=== PATIENT | male | born 1955 ===

== ENCOUNTER 2017-05-12 22:44 | Emergency (ER) | payer OTHER ==
[2017-05-12 22:44] VITALS: BMI 32.5
--- NOTE | 2017-05-12 23:37 | C.PDOC ---
History Of Present Illness 61 year old male with PMHx of schizophrenia living in a fpc presents today via EMS for dental pain. Patient was seen by his dentist today where he had 2 extractions. EMS states that they were called for dental pain but when questioned here patient states he has leg pain and not dental pain. Patient does have a fever of 102.9 which he was unaware of. On further questioning he also admits to having a cough associated with body aches. Patient is a poor historian. Time Seen by Provider: 05/12/17 23:31 Chief Complaint (Nursing): Dental Pain History Per: Patient History/Exam Limitations: no limitations Onset/Duration Of Symptoms: Hrs Current Symptoms Are (Timing): Still Present Quality: Positive for: "Pain" Recent travel outside of the [place]: No Additional History Per: Patient Past Medical History Reviewed: Historical Data, Nursing Documentation, Vital Signs Vital Signs: Last Vital Signs Temp 102.9 F H 05/12/17 23:28 Pulse 110 H 05/12/17 23:01 Resp 20 05/12/17 23:01 BP 104/59 L 05/12/17 23:01 Pulse Ox 96 05/13/17 00:20 - Medical History PMH: Anxiety, Gastritis, HTN, Parkinson's Disease, Schizophrenia Denies: Chronic Kidney Disease Surgical History: Appendectomy - [facility] Procedures ENDOSC POLYPECTOMY OF LG INTEST (03/02/13) Family History: States: Unknown Family Hx - Social History Hx Alcohol Use: No Hx Substance Use: No - Immunization History Hx Tetanus Toxoid Vaccination: Yes Hx Influenza Vaccination: Yes Hx Pneumococcal Vaccination: Yes Review Of Systems Except As Marked, All Systems Reviewed And Found Negative. Constitutional: Positive for: Fever. Negative for: Chills ENT: Positive for: Mouth Pain Cardiovascular: Negative for: Chest Pain, Palpitations Respiratory: Positive for: Cough. Negative for: Shortness of Breath Gastrointestinal: Negative for: Nausea, Vomiting, Abdominal Pain Musculoskeletal: Positive for: Leg Pain Skin: Negative for: Rash Neurological: Negative for: Weakness, Numbness Physical Exam - Physical Exam Appears: Non-toxic, No Acute Distress Skin: Normal Color, Warm, Dry Head: Atraumatic, Normacephalic Eye(s): bilateral: Other (conjuctival injection) Nose: No Discharge, No Deformity Oral Mucosa: Moist Teeth: Other (fresh missing teeth with no active bleeding) Throat: Normal, No Erythema, No Exudate Neck: Normal ROM, Supple Chest: Symmetrical Cardiovascular: Rhythm Regular, No Murmur Respiratory: Normal Breath Sounds, No Rales, No Rhonchi, No Wheezing Gastrointestinal/Abdominal: Soft, No Tenderness, No Guarding, No Rebound Extremity: Normal ROM, No Pedal Edema, No Calf Tenderness, No Deformity, No Swelling Neurological/Psych: Oriented x3, Normal Speech, Normal Cognition ED Course And Treatment O2 Sat by Pulse Oximetry: 96 (On RA) Pulse Ox Interpretation: Normal Medical Decision Making Medical Decision Making: Plan: * Blood work * CXR * Tylenol 650 mg PO * Influenza A B test * UA Disposition - Disposition Disposition Time: 00:46 Condition: STABLE Forms: [facility] ([place]) - Clinical Impression Clinical Impression: Fever - Scribe Statement The provider has reviewed the documentation as recorded by the Scribe Dalton Blum All medical record entries made by the Scribe were at my direction and personally dictated by me. I have reviewed the chart and agree that the record accurately reflects my personal performance of the history, physical exam, medical decision making, and the department course for this patient. I have also personally directed, reviewed, and agree with the discharge instructions and disposition. Physician Patient Turnover Patient Signed Over To: Nida Ash Handoff Comments: pending labs and xray
[2017-05-13 01:02] LABS: BASO % 0.4 % (0.0-2.0); EOS % 0.2 % (0.0-4.0); HEMOGLOBIN 12.7 g/dL (12.0-18.0); LYMPH # 1.5 K/uL (1.0-4.3); LYMPH % 22.7 % (20.0-40.0); MEAN CELL VOLUME 82.9 fL (80.0-94.0); MEAN CORPUSCULAR HEMOGLOBIN 27.6 pg (27.0-31.0); MEAN CORPUSCULAR HGB CONC 33.3 g/dL (33.0-37.0); MEAN PLATELET VOLUME 8.7 fL (7.2-11.7); MONO # 0.7 K/uL (0.0-0.8); NEUT # 4.5 K/uL (1.8-7.0); NEUT % 66.7 % (50.0-75.0); NRBC % 0.1 % (0.0-2.0); RBC 4.6 Mil/uL (4.40-5.90); WHITE BLOOD COUNT 6.8 K/uL (4.8-10.8)
[2017-05-13 01:23] LABS: ALB/GLOB RATIO 1.3 (1.0-2.1); ALBUMIN 4.3 g/dL (3.5-5.0); ALT/SGPT 57 U/L (21-72); AST/SGOT 68 U/L (17-59); BLOOD UREA NITROGEN 16 mg/dL (9-20); CALCIUM 8.5 mg/dl (8.6-10.4); GFR AFRICAN-AMERICAN > 60; GFR NON-AFRICAN AMERICAN 56
[2017-05-13] MEDS ORDERED: Sodium Chloride 0.9% 1,000 ML ONE (01:37)
[2017-05-13] MEDS: Sodium Chloride 0.9% 1,000 ML IV ONE (01:42)
--- NOTE | 2017-05-13 07:52 | RAD ---
HISTORY: cough and fever COMPARISON: Chest x-ray 05/13/2017 TECHNIQUE: Chest PA and lateral FINDINGS: LUNGS: No focal consolidation is seen. PLEURA: No pleural effusion is identified. CARDIOVASCULAR: Heart size is within normal limits. OSSEOUS STRUCTURES: No acute fracture identified. VISUALIZED UPPER ABDOMEN: Unremarkable. OTHER FINDINGS: None. IMPRESSION: No acute cardiopulmonary process seen.
[2017-05-13 08:21] LABS: SQUAMOUS EPITHIAL < 1 /hpf (0-5); URINE BILIRUBIN NEGATIVE (NEGATIVE); URINE BLOOD NEGATIVE (NEGATIVE); URINE CLARITY Clear (Clear); URINE COLOR Yellow (YELLOW); URINE GLUCOSE (UA) NORMAL (Normal); URINE LEUKOCYTE ESTERASE NEG Leu/uL (Negative); URINE NITRATE NEGATIVE (NEGATIVE); URINE PROTEIN 1+ mg/dL (NEGATIVE); URINE UROBILINOGEN NORMAL mg/dL (0.2-1.0)
[2017-05-13 08:24] LABS: BASO # 0.1 K/uL (0.0-0.2); BASO % 1.1 % (0.0-2.0); EOS % 0.4 % (0.0-4.0); HEMOGLOBIN 12.3 g/dL (12.0-18.0); LYMPH # 1.9 K/uL (1.0-4.3); LYMPH % 30.5 % (20.0-40.0); MEAN CELL VOLUME 83.3 fL (80.0-94.0); MEAN CORPUSCULAR HGB CONC 33.6 g/dL (33.0-37.0); MEAN PLATELET VOLUME 8.6 fL (7.2-11.7); MONO # 0.6 K/uL (0.0-0.8); MONO % 9.5 % (0.0-10.0); NEUT # 3.7 K/uL (1.8-7.0); NEUT % 58.5 % (50.0-75.0); NRBC % 0.1 % (0.0-2.0); RBC 4.39 Mil/uL (4.40-5.90); RED CELL DISTRIBUTION WIDTH 16.1 % (11.5-14.5); WHITE BLOOD COUNT 6.3 K/uL (4.8-10.8)
[2017-05-13 08:33] LABS: VENOUS BLOOD GAS PCO2 42 mmHg (40-60); VENOUS BLOOD GAS PO2 35 mm/Hg (30-55)
--- NOTE | 2017-05-13 08:42 | CT ---
PROCEDURE: CT Chest without contrast HISTORY: SOB COMPARISON: . Two-view chest TECHNIQUE: Contiguous axial images were obtained through the chest without intravenous contrast enhancement. Sagittal and coronal reconstructions were performed. Radiation dose (DLP): 370.46 she mGy-cm. This CT exam was performed using one or more of the following dose reduction techniques: Automated exposure control, adjustment of the mA and/or kV according to patient size, and/or use of iterative reconstruction technique. FINDINGS: LUNGS: Dependent atelectasis at the lung bases approximately symmetrical, mild in degree/ severity. No suspicious pulmonary nodules, masses or infiltrates otherwise identified. She Clear lungs. Visualized airway clear. MEDIASTINUM: Unremarkable thoracic aorta. No aneurysm. Normal sized heart. Main pulmonary artery unremarkable. No vascular congestion. No lymphadenopathy. Thickening of the esophagus may reflect mild diffuse esophagitis. No focal abnormalities identified. PLEURA: No pleural fluid. No pneumothorax. BONES: No fracture. No destructive lesion. UPPER ABDOMEN: Grossly unremarkable. OTHER FINDINGS: Cholelithiasis without CT evidence of acute cholecystitis. IMPRESSION: Dependent atelectasis, mild and symmetrical at the lung bases. Findings suggestive of mild esophagitis. Cholelithiasis without CT evidence of acute cholecystitis.
--- NOTE | 2017-05-13 09:27 | RAD ---
PROCEDURE: CHEST RADIOGRAPH, 1 VIEW HISTORY: SOB COMPARISON: 02/09/2017 FINDINGS: LUNGS: Shallow lung volumes - consolidation PLEURA: No pneumothorax. Trace left pleural effusion possible -shallow lung volume impede optimal evaluation here CARDIOVASCULAR: Minimal cardiomegaly. Central pulmonary vasculature -top normal appearing OSSEOUS STRUCTURES: Bilateral shoulder or arthrosis VISUALIZED UPPER ABDOMEN: Normal. OTHER FINDINGS: None. IMPRESSION: Minimal cardiomegaly. Central pulmonary vasculature -top normal appearing. Possible minimal left pleural effusion No consolidation
--- NOTE | 2017-05-13 10:22 | US ---
HISTORY: fever pain COMPARISON: None available. TECHNIQUE: Sonographic evaluation of the right upper quadrant of the abdomen. FINDINGS: LIVER: Measures 17.7 cm in length. Echogenic liver may be seen in setting of hepatic parenchymal disease or fatty infiltration. No focal hepatic mass identified. The main portal vein is not well visualized. No intrahepatic bile duct dilatation. GALLBLADDER: Gallstones. No gallbladder wall thickening or pericholecystic edema. Negative sonographic Correa's sign as assessed by the manager ed. COMMON BILE DUCT: Measures 5 mm. PANCREAS: Not well-visualized. RIGHT KIDNEY: Measures 10.8 cm. No obstructing is identified. AORTA: Not well-visualized. IVC: Not well-visualized. OTHER FINDINGS: None . IMPRESSION: Markedly limited study. Echogenic liver may be seen in setting of hepatic parenchymal disease or fatty infiltration. Cholelithiasis.
[2017-05-13 13:22] VITALS: BP 159/79; PULSE 105; RESP 18; TEMP 97.7; O2SAT 96
== END 2017-05-13 13:12 | disposition home or self-care (01) ==
LOC: C.ER 22:44
DX: R50.9 Fever, unspecified (principal); I10 Essential (primary) hypertension; G20 Parkinson's disease
CPT/HCPCS: 71045; 71046; 71250; 76705; 80053; 81001; 82803; 85025; 87040; 87086; 87804; 96360; 99285; J7040

== ENCOUNTER 2018-08-22 07:04 | Observation (INO) | payer OTHER ==
[2018-08-22 07:05] VITALS: BMI 32.5
--- NOTE | 2018-08-22 08:33 | CT ---
Date of service: 08/22/2018 PROCEDURE: CT HEAD WITHOUT CONTRAST. HISTORY: drowsiness, lethargy for 10 hours COMPARISON: None available. TECHNIQUE: Axial computed tomography images were obtained through the head/brain without intravenous contrast. Radiation dose: Total exam DLP = 947.08 mGy-cm. This CT exam was performed using one or more of the following dose reduction techniques: Automated exposure control, adjustment of the mA and/or kV according to patient size, and/or use of iterative reconstruction technique. FINDINGS: HEMORRHAGE: No intracranial hemorrhage. BRAIN: No mass effect or edema. Scattered focal lucencies in the subcortical and periventricular white matter suggestive for chronic microvascular ischemic change. Bilateral basal ganglia calcifications. VENTRICLES: Unremarkable. No hydrocephalus. CALVARIUM: Unremarkable. PARANASAL SINUSES: Unremarkable as visualized. No significant inflammatory changes. MASTOID AIR CELLS: Unremarkable as visualized. No inflammatory changes. OTHER FINDINGS: None. IMPRESSION: No acute intracranial abnormality. Chronic microvascular ischemic changes. Bilateral basal ganglia calcifications. If symptoms persists, consider correlation with MRI.
[2018-08-22 08:41] LABS: VENOUS BLOOD GAS BASE EXCESS -2.2 mmol/L (0.0-2.0); VENOUS BLOOD GAS PCO2 44 mmHg (40-60); VENOUS BLOOD GAS PO2 48 mm/Hg (30-55); VENOUS BLOOD PH 7.34 (7.32-7.43)
[2018-08-22] MEDS ORDERED: Sodium Chloride 0.9% 1,000 ML ONE (08:41)
[2018-08-22 08:43] LABS: BASO % 0.5 % (0.0-2.0); EOS # 0.2 K/uL (0.0-0.7); EOS % 1.9 % (0.0-4.0); HEMOGLOBIN 11.2 g/dL (12.0-18.0); LYMPH # 1.9 K/uL (1.0-4.3); LYMPH % 23.2 % (20.0-40.0); MEAN CELL VOLUME 81.5 fL (80.0-94.0); MEAN CORPUSCULAR HGB CONC 31.9 g/dL (33.0-37.0); MEAN PLATELET VOLUME 8.3 fL (7.2-11.7); MONO # 0.7 K/uL (0.0-0.8); NEUT # 5.5 K/uL (1.8-7.0); NEUT % 66.4 % (50.0-75.0); NRBC % 0.1 % (0.0-2.0); RBC 4.3 Mil/uL (4.40-5.90); RED CELL DISTRIBUTION WIDTH 17.1 % (11.5-14.5); WHITE BLOOD COUNT 8.3 K/uL (4.8-10.8)
[2018-08-22 08:51] LABS: INR 1.1; PROTHROMBIN TIME 11.9 SECONDS (9.7-12.2)
--- NOTE | 2018-08-22 09:05 | RAD ---
Chest x-ray single frontal view HISTORY: Code stroke. COMPARISON: 05/13/2017 FINDINGS: Mild patchy increased markings at the lung bases. Heart size within normal limits. Degenerative changes in the spine. Impression: Mild patchy increased markings at the lung bases.
[2018-08-22 09:08] LABS: ALB/GLOB RATIO 1.5 (1.0-2.1); ALBUMIN 4.1 g/dL (3.5-5.0); ALT/SGPT 11 U/L (21-72); AST/SGOT 222 U/L (17-59); BLOOD UREA NITROGEN 34 mg/dL (9-20); CALCIUM 9.2 mg/dl (8.6-10.4); GFR NON-AFRICAN AMERICAN > 60; HDL CHOLESTEROL 47 mg/dL (30-70)
--- NOTE | 2018-08-22 09:16 | C.PDOC ---
History Of Present Illness 63 y/o male brought to ER from ambulance from [facility] for evaluation of lethargy. Per EMS, the staff at the center noted that patient appeared more lethargic and drowsy than usual since 10 pm last night. The staff continued to observe the patient overnight and in the bell hole digger. They noticed that patient was still lethargic so they decided to call the ambulance.On arrival to ER, patient is awake and alert.Patient is complaining of back pain. Denies having fever,chills, neck pain,CP,SOB, weakness/numbness and bowel/bladder incontinence. Time Seen by Provider: 08/22/18 07:28 Chief Complaint (Nursing): Weakness/Neurological Deficit History Per: Patient, EMS History/Exam Limitations: no limitations Onset/Duration Of Symptoms: Days Current Symptoms Are (Timing): Still Present Severity: Moderate Past Medical History Reviewed: Historical Data, Nursing Documentation, Vital Signs Vital Signs: Last Vital Signs Temp 98.5 F 08/22/18 07:09 Pulse 83 08/22/18 07:09 Resp 18 08/22/18 07:09 BP 131/71 08/22/18 07:09 Pulse Ox 98 08/22/18 07:09 - Medical History PMH: Anxiety, Back Problems (Lower back pain), Gastritis, HTN, Hyperlipidemia, Parkinson's Disease (Parkinson's Syndrome), Schizophrenia Denies: Chronic Kidney Disease Surgical History: Appendectomy - [facility] Procedures ENDOSC POLYPECTOMY OF LG INTEST (03/02/13) Family History: States: No Known Family Hx - Social History Hx Alcohol Use: No Hx Substance Use: No - Immunization History Hx Tetanus Toxoid Vaccination: Yes Hx Influenza Vaccination: Yes Hx Pneumococcal Vaccination: Yes Review Of Systems Except As Marked, All Systems Reviewed And Found Negative. Constitutional: Negative for: Fever, Chills Cardiovascular: Negative for: Chest Pain Respiratory: Negative for: Shortness of Breath Musculoskeletal: Positive for: Back Pain. Negative for: Neck Pain Neurological: Negative for: Weakness, Numbness Physical Exam - Physical Exam Appears: Non-toxic, No Acute Distress, Other (drowsy but arousable upon verbal stimuli, answering questions appropriately) Skin: Normal Color, Warm, Dry, No Rash Head: Atraumatic, Normacephalic Eye(s): bilateral: PERRL, EOMI Nose: Normal Oral Mucosa: Moist Tongue: Normal Appearing Lips: Normal Appearing Throat: No Erythema, No Exudate Neck: Normal ROM, Supple Chest: Symmetrical, No Tenderness Cardiovascular: Rhythm Regular, No Friction Rub, No Murmur Respiratory: Normal Breath Sounds, No Rales, No Rhonchi, No Wheezing Gastrointestinal/Abdominal: Normal Exam, Soft, No Tenderness, No Guarding, No Rebound Back: No CVA Tenderness, Vertebral Tenderness, Paraspinal Tenderness Extremity: Normal ROM, No Tenderness, No Swelling Pulses: Left Radial: Normal, Right Radial: Normal, Left Dorsalis Pedis: Normal, Right Dorsalis Pedis: Normal Neurological/Psych: Oriented x3, Normal Speech, Normal Motor, Normal Sensation Gait: Unable To Assess ED Course And Treatment - Laboratory Results Result Diagrams: 08/22/18 08:35 08/22/18 08:35 Lab Results: pO2 48 mm/Hg (30-55) 08/22/18 08:37 VBG pH 7.34 (7.32-7.43) 08/22/18 08:37 VBG pCO2 44 mmHg (40-60) 08/22/18 08:37 VBG HCO3 22.8 mmol/L 08/22/18 08:37 VBG Total CO2 25.1 mmol/L (22-28) 08/22/18 08:37 VBG O2 Sat (Calc) 85.4 % (40-65) H 08/22/18 08:37 VBG Base Excess -2.2 mmol/L (0.0-2.0) L 08/22/18 08:37 VBG Potassium 3.4 mmol/L (3.6-5.2) L 08/22/18 08:37 Sodium 139.0 mmol/l (132-148) 08/22/18 08:37 Chloride 106.0 mmol/L (98-107) 08/22/18 08:37 Glucose 71 mg/dl (75-110) L 08/22/18 08:37 Lactate 1.2 mmol/L (0.7-2.1) 08/22/18 08:37 PT 11.9 SECONDS (9.7-12.2) 08/22/18 08:35 INR 1.1 08/22/18 08:35 APTT 30 SECONDS (21-34) 08/22/18 08:35 Troponin I < 0.0120 ng/mL (0.00-0.120) 08/22/18 08:35 Total Bilirubin 0.2 mg/dL (0.2-1.3) 08/22/18 08:35 AST 222 U/L (17-59) H D 08/22/18 08:35 ALT 11 U/L (21-72) L D 08/22/18 08:35 Alkaline Phosphatase 88 U/L (38-126) 08/22/18 08:35 Total Protein 6.9 g/dL (6.3-8.3) 08/22/18 08:35 Albumin 4.1 g/dL (3.5-5.0) 08/22/18 08:35 Globulin 2.8 gm/dL (2.2-3.9) 08/22/18 08:35 Albumin/Globulin Ratio 1.5 (1.0-2.1) 08/22/18 08:35 ECG: Interpreted By Me ECG Rhythm: Sinus Rhythm ECG Interpretation: Normal Interpretation Of ECG: normal axis, normal ST-T waves, normal R wave progression O2 Sat by Pulse Oximetry: 98 (RA) Pulse Ox Interpretation: Normal - Other Rad CXR X-Ray: Viewed By Me, Read By Radiologist Interpretation: Chest x-ray single frontal view. HISTORY: Code stroke. COMPARISON: 05/13/2017. FINDINGS: Mild patchy increased markings at the lung bases. Heart size within normal limits. Degenerative changes in the spine. Impression: Mild patchy increased markings at the lung bases. - CT Scan/US CT-Head Other Rad Studies (CT/US): Read By Radiologist, Radiology Report Reviewed CT/US Interpretation: Date of service: 08/22/2018. PROCEDURE: CT HEAD WITHOUT CONTRAST. HISTORY: drowsiness, lethargy for 10 hours. COMPARISON: None available. TECHNIQUE: Axial computed tomography images were obtained through the head/brain without intravenous contrast. Radiation dose: Total exam DLP = 947.08 mGy-cm. This CT exam was performed using one or more of the following dose reduction techniques: Automated exposure control, adjustment of the mA and/or kV according to patient size, and/or use of iterative reconstruction tech nique. FINDINGS: HEMORRHAGE: No intracranial hemorrhage. BRAIN: No mass effect or edema. Scattered focal lucencies in the subcortical and periventricular white matter suggestive for chronic microvascular ischemic change. Bilateral basal ganglia calcifications. VENTRICLES: Unremarkable. No hydrocephalus. CALVARIUM: Unremarkable. PARANASAL SINUSES: Unremarkable as visualized. No significant inflammatory changes. MASTOID AIR CELLS: Unremarkable as visualized. No inflammatory changes. OTHER FINDINGS: None. IMPRESSION: No acute intracranial abnormality. Chronic microvascular ischemic changes. Bilateral basal ganglia calcifications. If symptoms persists, consider correlation with MRI. Medical Decision Making Medical Decision Making: Plan: --Labs --UA --CXR --CT-Head --IV Fluids The case was discussed with Dr. Leiva (Neurology oncall) who state that this case sounds more like drug-drug interaction and patient may have taken too much of the valium. On re-exam, the patient is still drowsy A&Ox 2 (person and place). The case was discussed with dr. Vega (PMD) who agrees to admit the patient to her service. Disposition - Disposition Disposition: HOSPITALIZED Disposition Time: 11:00 Condition: STABLE - Clinical Impression Clinical Impression: Altered mental status, Lethargic - PA / FILLING HAULER / Resident Statement MD/DO has reviewed & agrees with the documentation as recorded. - Scribe Statement The provider has reviewed the documentation as recorded by the Scribe Joseph Sesay Provider Attestation All medical record entries made by the Scribe were at my direction and personally dictated by me. I have reviewed the chart and agree that the record accurately reflects my personal performance of the history, physical exam, medical decision making, and the department course for this patient. I have also personally directed, reviewed, and agree with the discharge instructions and disposition.
[2018-08-22 09:19] LABS: LDL CHOLESTEROL 60 mg/dL (0-129)
[2018-08-22] MEDS: Sodium Chloride 0.9% 1,000 ML IV SCH ×2 (09:32→17:56)
[2018-08-22 09:43] LABS: URINE BACTERIA RARE (<OCC)
[2018-08-22 09:44] LABS: URINE CLARITY Clear (Clear); URINE COLOR YELLOW (YELLOW)
[2018-08-22 09:45] LABS: URINE BILIRUBIN NEGATIVE (NEGATIVE); URINE BLOOD LARGE (NEGATIVE); URINE GLUCOSE (UA) 500 mg/dL (Normal); URINE LEUKOCYTE ESTERASE NEGATIVE Leu/uL (Negative); URINE PROTEIN TRACE mg/dL (NEGATIVE); URINE UROBILINOGEN 0.2 mg/dL (0.2-1.0)
[2018-08-22 09:59] LABS: BARBITURATES, UR NEGATIVE (NEGATIVE); OPIATES, UR NEGATIVE (NEGATIVE); PHENCYCLIDINE, UR NEGATIVE (NEGATIVE)
[2018-08-22 10:25] LABS: BENZODIAZEPINES, UR POSITIVE (NEGATIVE)
[2018-08-22] MEDS ORDERED: Sodium Chloride 0.9% 1,000 ML IV ONE (11:32)
--- NOTE | 2018-08-22 17:25 | CP.PCM.CON ---
History of Present Illness - History of Present Illness History of Present Illness: Neurology Consultation Note: Consult requested by Dr. Vega The patient is a 63-year-old man with a past medical history of Anxiety, Back Problems (Lower back pain) (on 10 mg Valium QHS), Gastritis, HTN, Hyperlipidemia, Parkinson's Disease (Parkinson's Syndrome), Schizophrenia, who lives in an assisted living facility and was noted to be more lethargic today than usual. He had no focal neurological deficits. CT scan of the head did not show any acute findings. When I saw the patient, he was back to baseline, alert and awake with resolved drowsiness. Review of Systems - Review of Systems All systems: reviewed and no additional remarkable complaints except Past Patient History - Past Medical History & Family History Past Medical History?: Yes - Past Social History Smoking Status: Never Smoked - CARDIAC Hx Hypertension: Yes - PULMONARY Hx Tuberculosis: Yes (latent TB (2005)) Other/Comment: Rul pulmonary nodule - NEUROLOGICAL Hx Parkinson's Disease: Yes (Parkinson's Syndrome) - HEENT Hx HEENT Problems: Yes Hx Glaucoma: Yes - RENAL Hx Chronic Kidney Disease: No - ENDOCRINE/METABOLIC Hx Endocrine Disorders: No Hx Diabetes Mellitus Type 2: Yes - HEMATOLOGICAL/ONCOLOGICAL Hx Blood Disorders: No - INTEGUMENTARY Hx Dermatological Problems: No - MUSCULOSKELETAL/RHEUMATOLOGICAL Hx Musculoskeletal Disorders: No - GASTROINTESTINAL Hx Gastritis: Yes - GENITOURINARY/GYNECOLOGICAL Hx Genitourinary Disorders: No - PSYCHIATRIC Hx Anxiety: Yes Hx Schizophrenia: Yes Hx Substance Use: No - SURGICAL HISTORY Hx Appendectomy: Yes - ANESTHESIA Hx Anesthesia: Yes Hx Anesthesia Reactions: No Hx Malignant Hyperthermia: No Meds Allergies/Adverse Reactions: Allergies Allergy/AdvReac Type Severity Reaction Status Date / Time No Known Allergies Allergy Verified 08/22/18 07:23 - Medications Medications: Current Medications Sodium Chloride (Sodium Chloride 0.9%) 1,000 mls @ 100 mls/hr IV .Q10H ELSA Last Admin: 08/22/18 09:32 Dose: 100 mls/hr Physical Exam - Constitutional Appears: Well - Head Exam Head Exam: ATRAUMATIC, NORMAL INSPECTION, NORMOCEPHALIC - Eye Exam Eye Exam: EOMI, Normal appearance, PERRL Pupil Exam: NORMAL ACCOMODATION, PERRL - ENT Exam ENT Exam: Mucous Membranes Moist, Normal Exam - Neck Exam Neck exam: Positive for: Normal Inspection - Respiratory Exam Respiratory Exam: Clear to Auscultation Bilateral, NORMAL BREATHING PATTERN - Cardiovascular Exam Cardiovascular Exam: REGULAR RHYTHM - GI/Abdominal Exam GI & Abdominal Exam: Normal Bowel Sounds, Soft. absent: Tenderness - Rectal Exam Rectal Exam: NORMAL INSPECTION - Exam Exam: Circumcision, NORMAL INSPECTION External exam: NORMAL EXTERNAL EXAM Speculum exam: NORMAL SPECULUM EXAM Bimanual exam: NORMAL BIMANUAL EXAM - Extremities Exam Extremities exam: Positive for: normal inspection - Back Exam Back exam: NORMAL INSPECTION - Neurological Exam Neurological exam: Alert, CN II-XII Intact, Normal Gait, Oriented x3, Reflexes Normal Additional comments: Rigidity and bradykinesia noted. - Psychiatric Exam Psychiatric exam: Normal Affect, Normal Mood - Skin Skin Exam: Dry, Intact, Normal Color, Warm Results - Vital Signs Recent Vital Signs: Last Vital Signs Temp 98 F 08/22/18 15:21 Pulse 78 08/22/18 16:39 Resp 14 08/22/18 16:39 BP 113/64 08/22/18 16:39 Pulse Ox 97 08/22/18 16:39 - Labs Result Diagrams: 08/22/18 08:35 08/22/18 08:35 Labs: Laboratory Results - last 24 hr 08/22/18 08/22/18 08/22/18 07:27 07:50 08:35 WBC 8.3 RBC 4.30 L Hgb 11.2 L Hct 35.0 MCV 81.5 MCH 26.0 L MCHC 31.9 L RDW 17.1 H Plt Count 264 D MPV 8.3 Neut % (Auto) 66.4 Lymph % (Auto) 23.2 [place] % (Auto) 8.0 Eos % (Auto) 1.9 Baso % (Auto) 0.5 Neut # (Auto) 5.5 Lymph # (Auto) 1.9 [place] # (Auto) 0.7 Eos # (Auto) 0.2 Baso # (Auto) 0.0 PT INR APTT pO2 VBG pH VBG pCO2 VBG HCO3 VBG Total CO2 VBG O2 Sat (Calc) VBG Base Excess VBG Potassium Glucose Lactate Sodium Potassium Chloride Carbon Dioxide Anion Gap BUN Creatinine Est GFR ( Amer) Est GFR (Non-Af Amer) POC Glucose (mg/dL) 102 Random Glucose Hemoglobin A1c Calcium Total Bilirubin AST ALT Alkaline Phosphatase Troponin I Total Protein Albumin Globulin Albumin/Globulin Ratio Triglycerides Cholesterol LDL Cholesterol Direct HDL Cholesterol Venous Blood Potassium Urine Color Urine Clarity Urine pH Ur Specific [place] Urine Protein Urine Glucose (UA) Urine Ketones Urine Blood Urine Nitrate Urine Bilirubin Urine Urobilinogen Ur Leukocyte Esterase Urine WBC (Auto) Urine RBC (Auto) Urine Bacteria Urine Opiates Screen Urine Methadone Screen Ur Barbiturates Screen Ur Phencyclidine Scrn Ur Amphetamines Screen U Benzodiazepines Scrn U Oth Cocaine Metabols U Cannabinoids Screen Alcohol, Quantitative Blood Type B POSITIVE Antibody Screen Negative 08/22/18 08/22/18 08/22/18 08:35 08:35 08:35 WBC RBC Hgb Hct MCV MCH MCHC RDW Plt Count MPV Neut % (Auto) Lymph % (Auto) [place] % (Auto) Eos % (Auto) Baso % (Auto) Neut # (Auto) Lymph # (Auto) [place] # (Auto) Eos # (Auto) Baso # (Auto) PT 11.9 INR 1.1 APTT 30 pO2 VBG pH VBG pCO2 VBG HCO3 VBG Total CO2 VBG O2 Sat (Calc) VBG Base Excess VBG Potassium Glucose Lactate Sodium 140 Potassium 3.6 Chloride 107 Carbon Dioxide 23 Anion Gap 13 BUN 34 H Creatinine 1.0 Est GFR ( Amer) > 60 Est GFR (Non-Af Amer) > 60 POC Glucose (mg/dL) Random Glucose 77 D Hemoglobin A1c 6.3 Calcium 9.2 Total Bilirubin 0.2 AST 222 H D ALT 11 L D Alkaline Phosphatase 88 Troponin I < 0.0120 Total Protein 6.9 Albumin 4.1 Globulin 2.8 Albumin/Globulin Ratio 1.5 Triglycerides 67 Cholesterol 115 LDL Cholesterol Direct 60 HDL Cholesterol 47 Venous Blood Potassium Urine Color Urine Clarity Urine pH Ur Specific [place] Urine Protein Urine Glucose (UA) Urine Ketones Urine Blood Urine Nitrate Urine Bilirubin Urine Urobilinogen Ur Leukocyte Esterase Urine WBC (Auto) Urine RBC (Auto) Urine Bacteria Urine Opiates Screen Urine Methadone Screen Ur Barbiturates Screen Ur Phencyclidine Scrn Ur Amphetamines Screen U Benzodiazepines Scrn U Oth Cocaine Metabols U Cannabinoids Screen Alcohol, Quantitative < 10 Blood Type Antibody Screen 08/22/18 08/22/18 08/22/18 08:37 09:30 09:30 WBC RBC Hgb Hct MCV MCH MCHC RDW Plt Count MPV Neut % (Auto) Lymph % (Auto) [place] % (Auto) Eos % (Auto) Baso % (Auto) Neut # (Auto) Lymph # (Auto) [place] # (Auto) Eos # (Auto) Baso # (Auto) PT INR APTT pO2 48 VBG pH 7.34 VBG pCO2 44 VBG HCO3 22.8 VBG Total CO2 25.1 VBG O2 Sat (Calc) 85.4 H VBG Base Excess -2.2 L VBG Potassium 3.4 L Glucose 71 L Lactate 1.2 Sodium 139.0 Potassium Chloride 106.0 Carbon Dioxide Anion Gap BUN Creatinine Est GFR ( Amer) Est GFR (Non-Af Amer) POC Glucose (mg/dL) Random Glucose Hemoglobin A1c Calcium Total Bilirubin AST ALT Alkaline Phosphatase Troponin I Total Protein Albumin Globulin Albumin/Globulin Ratio Triglycerides Cholesterol LDL Cholesterol Direct HDL Cholesterol Venous Blood Potassium 3.4 L Urine Color Yellow Urine Clarity Clear Urine pH 6.0 Ur Specific [place] 1.025 Urine Protein Trace Urine Glucose (UA) 500 Urine Ketones 15 Urine Blood Large Urine Nitrate Negative Urine Bilirubin Negative Urine Urobilinogen 0.2 Ur Leukocyte Esterase Negative Urine WBC (Auto) 1 Urine RBC (Auto) 1 Urine Bacteria Rare Urine Opiates Screen Negative Urine Methadone Screen Negative Ur Barbiturates Screen Negative Ur Phencyclidine Scrn Negative Ur Amphetamines Screen Negative U Benzodiazepines Scrn Positive U Oth Cocaine Metabols Negative U Cannabinoids Screen Negative Alcohol, Quantitative Blood Type Antibody Screen Assessment & Plan (1) Altered mental status Assessment and Plan: Likely due to benzodiazepine mixture with atypical antipsychotics. This combination should be avoided. Thank you. Status: Resolved
--- NOTE | 2018-08-22 18:49 | CP.PCM.HP ---
History of Present Illness - History of Present Illness History of Present Illness: cc; Lethargy The patient is a 63-year-old man with a past medical history of Anxiety, Back Problems (Lower back pain) (on 10 mg Valium QHS), DM, Gastritis, HTN, Hyperlipidemia, Parkinson's Disease (Parkinson's Syndrome), Schizophrenia, who lives in a nursing home and was noted to be more lethargic today than usual. Pt had a CT in the ER which was negative and was seen by neuro. Pt is now back to baseline and states he feels well except for lower back pain. Pt takes multiple meds including Valium 10mg at qhs, prescribed by his psychiatrist or neurologyst. Present on Admission - Present on Admission Any Indicators Present on Admission: No Review of Systems - Review of Systems Systems not reviewed;Unavailable: Altered Mental Status - Cardiovascular Cardiovascular: absent: Chest Pain, Chest Pain with Activity, Irregular Heart Rhythm - Respiratory Respiratory: absent: Cough, Hemoptysis - Gastrointestinal Gastrointestinal: absent: Abdominal Pain - Genitourinary Genitourinary: absent: Change in Urinary Stream - Musculoskeletal Musculoskeletal: Back Pain Past Patient History - Past Medical History & Family History Past Medical History?: Yes - Past Social History Smoking Status: Never Smoked - CARDIAC Hx Hypertension: Yes - PULMONARY Hx Tuberculosis: Yes (latent TB (2005)) Other/Comment: Rul pulmonary nodule - NEUROLOGICAL Hx Parkinson's Disease: Yes (Parkinson's Syndrome) - HEENT Hx HEENT Problems: Yes Hx Glaucoma: Yes - RENAL Hx Chronic Kidney Disease: No - ENDOCRINE/METABOLIC Hx Endocrine Disorders: No Hx Diabetes Mellitus Type 2: Yes - HEMATOLOGICAL/ONCOLOGICAL Hx Blood Disorders: No - INTEGUMENTARY Hx Dermatological Problems: No - MUSCULOSKELETAL/RHEUMATOLOGICAL Hx Musculoskeletal Disorders: No - GASTROINTESTINAL Hx Gastritis: Yes - GENITOURINARY/GYNECOLOGICAL Hx Genitourinary Disorders: No - PSYCHIATRIC Hx Anxiety: Yes Hx Schizophrenia: Yes Hx Substance Use: No - SURGICAL HISTORY Hx Appendectomy: Yes - ANESTHESIA Hx Anesthesia: Yes Hx Anesthesia Reactions: No Hx Malignant Hyperthermia: No Meds Allergies/Adverse Reactions: Allergies Allergy/AdvReac Type Severity Reaction Status Date / Time No Known Allergies Allergy Verified 08/22/18 07:23 Physical Exam - Constitutional Appears: Non-toxic - Eye Exam Eye Exam: Normal appearance - ENT Exam ENT Exam: Mucous Membranes Moist - Respiratory Exam Respiratory Exam: Clear to Auscultation Bilateral, NORMAL BREATHING PATTERN - Cardiovascular Exam Cardiovascular Exam: REGULAR RHYTHM, RRR, +S1, +S2. absent: JVD, Rubs - Extremities Exam Extremities exam: Positive for: full ROM - Back Exam Back exam: FULL ROM, NORMAL INSPECTION - Psychiatric Exam Psychiatric exam: Normal Mood - Skin Skin Exam: Normal Color (non focal neuro exam) Results - Vital Signs Recent Vital Signs: Last Vital Signs Temp 97.8 F 08/22/18 18:01 Pulse 865 H 08/22/18 18:01 Resp 19 08/22/18 18:01 BP 131/67 08/22/18 18:01 Pulse Ox 96 08/22/18 18:01 - Labs Result Diagrams: 08/22/18 08:35 08/22/18 08:35 Labs: Laboratory Results - last 24 hr 08/22/18 08/22/18 08/22/18 07:27 07:50 08:35 WBC 8.3 RBC 4.30 L Hgb 11.2 L Hct 35.0 MCV 81.5 MCH 26.0 L MCHC 31.9 L RDW 17.1 H Plt Count 264 D MPV 8.3 Neut % (Auto) 66.4 Lymph % (Auto) 23.2 [place] % (Auto) 8.0 Eos % (Auto) 1.9 Baso % (Auto) 0.5 Neut # (Auto) 5.5 Lymph # (Auto) 1.9 [place] # (Auto) 0.7 Eos # (Auto) 0.2 Baso # (Auto) 0.0 PT INR APTT pO2 VBG pH VBG pCO2 VBG HCO3 VBG Total CO2 VBG O2 Sat (Calc) VBG Base Excess VBG Potassium Glucose Lactate Sodium Potassium Chloride Carbon Dioxide Anion Gap BUN Creatinine Est GFR ( Amer) Est GFR (Non-Af Amer) POC Glucose (mg/dL) 102 Random Glucose Hemoglobin A1c Calcium Total Bilirubin AST ALT Alkaline Phosphatase Troponin I Total Protein Albumin Globulin Albumin/Globulin Ratio Triglycerides Cholesterol LDL Cholesterol Direct HDL Cholesterol Venous Blood Potassium Urine Color Urine Clarity Urine pH Ur Specific [place] Urine Protein Urine Glucose (UA) Urine Ketones Urine Blood Urine Nitrate Urine Bilirubin Urine Urobilinogen Ur Leukocyte Esterase Urine WBC (Auto) Urine RBC (Auto) Urine Bacteria Urine Opiates Screen Urine Methadone Screen Ur Barbiturates Screen Ur Phencyclidine Scrn Ur Amphetamines Screen U Benzodiazepines Scrn U Oth Cocaine Metabols U Cannabinoids Screen Alcohol, Quantitative Blood Type B POSITIVE Antibody Screen Negative 08/22/18 08/22/18 08/22/18 08:35 08:35 08:35 WBC RBC Hgb Hct MCV MCH MCHC RDW Plt Count MPV Neut % (Auto) Lymph % (Auto) [place] % (Auto) Eos % (Auto) Baso % (Auto) Neut # (Auto) Lymph # (Auto) [place] # (Auto) Eos # (Auto) Baso # (Auto) PT 11.9 INR 1.1 APTT 30 pO2 VBG pH VBG pCO2 VBG HCO3 VBG Total CO2 VBG O2 Sat (Calc) VBG Base Excess VBG Potassium Glucose Lactate Sodium 140 Potassium 3.6 Chloride 107 Carbon Dioxide 23 Anion Gap 13 BUN 34 H Creatinine 1.0 Est GFR ( Amer) > 60 Est GFR (Non-Af Amer) > 60 POC Glucose (mg/dL) Random Glucose 77 D Hemoglobin A1c 6.3 Calcium 9.2 Total Bilirubin 0.2 AST 222 H D ALT 11 L D Alkaline Phosphatase 88 Troponin I < 0.0120 Total Protein 6.9 Albumin 4.1 Globulin 2.8 Albumin/Globulin Ratio 1.5 Triglycerides 67 Cholesterol 115 LDL Cholesterol Direct 60 HDL Cholesterol 47 Venous Blood Potassium Urine Color Urine Clarity Urine pH Ur Specific [place] Urine Protein Urine Glucose (UA) Urine Ketones Urine Blood Urine Nitrate Urine Bilirubin Urine Urobilinogen Ur Leukocyte Esterase Urine WBC (Auto) Urine RBC (Auto) Urine Bacteria Urine Opiates Screen Urine Methadone Screen Ur Barbiturates Screen Ur Phencyclidine Scrn Ur Amphetamines Screen U Benzodiazepines Scrn U Oth Cocaine Metabols U Cannabinoids Screen Alcohol, Quantitative < 10 Blood Type Antibody Screen 08/22/18 08/22/18 08/22/18 08:37 09:30 09:30 WBC RBC Hgb Hct MCV MCH MCHC RDW Plt Count MPV Neut % (Auto) Lymph % (Auto) [place] % (Auto) Eos % (Auto) Baso % (Auto) Neut # (Auto) Lymph # (Auto) [place] # (Auto) Eos # (Auto) Baso # (Auto) PT INR APTT pO2 48 VBG pH 7.34 VBG pCO2 44 VBG HCO3 22.8 VBG Total CO2 25.1 VBG O2 Sat (Calc) 85.4 H VBG Base Excess -2.2 L VBG Potassium 3.4 L Glucose 71 L Lactate 1.2 Sodium 139.0 Potassium Chloride 106.0 Carbon Dioxide Anion Gap BUN Creatinine Est GFR ( Amer) Est GFR (Non-Af Amer) POC Glucose (mg/dL) Random Glucose Hemoglobin A1c Calcium Total Bilirubin AST ALT Alkaline Phosphatase Troponin I Total Protein Albumin Globulin Albumin/Globulin Ratio Triglycerides Cholesterol LDL Cholesterol Direct HDL Cholesterol Venous Blood Potassium 3.4 L Urine Color Yellow Urine Clarity Clear Urine pH 6.0 Ur Specific [place] 1.025 Urine Protein Trace Urine Glucose (UA) 500 Urine Ketones 15 Urine Blood Large Urine Nitrate Negative Urine Bilirubin Negative Urine Urobilinogen 0.2 Ur Leukocyte Esterase Negative Urine WBC (Auto) 1 Urine RBC (Auto) 1 Urine Bacteria Rare Urine Opiates Screen Negative Urine Methadone Screen Negative Ur Barbiturates Screen Negative Ur Phencyclidine Scrn Negative Ur Amphetamines Screen Negative U Benzodiazepines Scrn Positive U Oth Cocaine Metabols Negative U Cannabinoids Screen Negative Alcohol, Quantitative Blood Type Antibody Screen Assessment & Plan - Assessment and Plan (Free Text) Assessment: 63 year old brought to ER due to lethargy , back to base line. Needs to have his meds revised at taking meds that may increase sedation consulted neuro and psych for their input adjusting meds. back pain; xray diabetes; monitor sugars will try to simplify his regimen.
[2018-08-22] MEDS: (Novolog) Insulin Aspart, Recombinant 100 u/ml 10 ml vial SC SCH (21:33)
[2018-08-22] MEDS: QUEtiapine 150 mg XR Tab PO SCH (22:13)
[2018-08-22 23:37] VITALS: RESP 20
[2018-08-23] MEDS: (Novolog) Insulin Aspart, Recombinant 100 u/ml 10 ml vial SC SCH ×4 (07:46→21:05)
[2018-08-23] MEDS: Metoprolol Succinate 25 mg XL Tab PO SCH (09:43)
[2018-08-23] MEDS: Enoxaparin 40 mg Syringe SC SCH (09:45)
[2018-08-23] MEDS ORDERED: Home Med 1 UNIT (Empagliflozin [Jardiance] 25 MG) PO SCH (10:00)
--- NOTE | 2018-08-23 13:58 | RAD ---
Date of service: 08/23/2018 PROCEDURE: Radiographs of the Lumbar Spine. HISTORY: back pain COMPARISON: No prior. TECHNIQUE: 5 views obtained. FINDINGS: BONES: Normal alignment. No listhesis. No fracture. Transitional elements at the lumbosacral junction are likely. For purposes of this report lowest normal lumbar sacral space is considered L5-S1 which has prominent superior and inferior anterior spurring. There is anterior spurring which is bridging at L3-4 and also emanating from the L3 vertebral body almost touching L2 vertebral body. Additional anterior superior spondylosis at L2 and L1 also present. DISC SPACES: Unremarkable. OTHER FINDINGS: Atherosclerotic vascular calcifications present. No malalignment suggested between the flexion and extension views. IMPRESSION: No fracture or subluxation. Bridging diffuse anterior lumbar spondylosis. No changing subluxation or malalignment suggested on flexion to extension views. Other findings as above.
[2018-08-23] MEDS: Sodium Chloride 0.9% 1,000 ML IV SCH (15:03)
[2018-08-23 15:52] VITALS: O2SAT 99
--- NOTE | 2018-08-23 17:31 | CP.PCM.PN ---
Subjective - Date & Time of Evaluation Date of Evaluation: 08/23/18 Time of Evaluation: 17:31 - Subjective Subjective: Pt is awake and alert co of back pain ( xry) normal sugars have been on the low side which makes me wonder if he is taking his meds regularly at home given his AIC. Objective - Vital Signs/Intake and Output Vital Signs (last 24 hours): Temp Pulse Resp BP Pulse Ox 98.3 F 83 20 113/65 99 08/23/18 15:00 08/23/18 15:00 08/23/18 15:00 08/23/18 15:00 08/23/18 15:00 Intake and Output: 08/23/18 08/23/18 06:59 18:59 Intake Total 1400 1200 Output Total 600 Balance 800 1200 - Medications Medications: Current Medications Aspirin (Aspirin Chewable) 81 mg PO DAILY [facility] Last Admin: 08/23/18 09:44 Dose: 81 mg Carbidopa/Levodopa (Sinemet) 1 tab PO BID [facility] Last Admin: 08/23/18 09:44 Dose: 1 tab Enoxaparin Sodium (Lovenox) 40 mg SC DAILY [facility] Last Admin: 08/23/18 09:45 Dose: 40 mg Entacapone (Comtan) 200 mg PO BID [facility] Last Admin: 08/23/18 09:45 Dose: 200 mg Sodium Chloride (Sodium Chloride 0.9%) 1,000 mls @ 100 mls/hr IV .Q10H [facility] Last Admin: 08/23/18 15:03 Dose: Not Given Insulin Aspart (Novolog) 0 unit SC [facility]; Protocol Last Admin: 08/23/18 16:36 Dose: Not Given Memantine (Namenda) 10 mg PO BID [facility] Last Admin: 08/23/18 09:43 Dose: 10 mg Metformin HCl (Glucophage) 1,000 mg PO BID [facility] Last Admin: 08/23/18 09:44 Dose: 1,000 mg Metoprolol Succinate (Toprol Xl) 25 mg PO DAILY [facility] Last Admin: 08/23/18 09:43 Dose: 25 mg Pioglitazone HCl (Actos) 30 mg PO DAILY [facility] Last Admin: 08/23/18 09:44 Dose: 30 mg Quetiapine Fumarate (Seroquel Xr) 300 mg PO HS [facility] Last Admin: 08/22/18 22:13 Dose: 300 mg Rosuvastatin Calcium (Crestor) 10 mg PO HS [facility] Last Admin: 08/22/18 22:13 Dose: 10 mg Sitagliptin Phosphate (Januvia) 100 mg PO DAILY [facility] Last Admin: 08/23/18 09:44 Dose: 100 mg - Labs Labs: 08/22/18 08:35 08/22/18 08:35 PT 11.9 SECONDS (9.7-12.2) 08/22/18 08:35 INR 1.1 08/22/18 08:35 APTT 30 SECONDS (21-34) 08/22/18 08:35 - Constitutional Appears: Non-toxic - Eye Exam Eye Exam: Normal appearance - ENT Exam ENT Exam: Mucous Membranes Moist - Respiratory Exam Respiratory Exam: Clear to Ausculation Bilateral Assessment and Plan - Assessment and Plan (Free Text) Assessment: sp lethargy Pt on multiple sedating mds pt seen by DR. Engel and neuro trazodone and benzo discontinued will also simplify his diabetes regimen dc planning tomorrow need to notify intermediate.
--- NOTE | 2018-08-23 20:44 | CON ---
DATE: 08/23/2018 PSYCHIATRIC CONSULTATION CHIEF COMPLAINT AND REASON FOR CONSULTATION: The patient referred by Dr. Vega for evaluation. The patient had change in mental status. The patient has schizophrenia and was noted to be lethargic. HISTORY OF PRESENT ILLNESS: This is a case of 63-year-old male with a long history of schizophrenia as well as possible secondary Parkinsonism. The patient lives in a senior care. The patient was admitted here for change in mental status. The patient was noted to be lethargic. The patient is taking a lot of psych meds, he said he sees a psychiatrist from [place], but could not remember the name. From the report, the patient was noted in the senior care to be very lethargic. The patient was also seen by Neurology. The patient states that he was given Valium because he was having some back pain. A review of his medication, the patient is taking the following psych meds: Trazodone 400 mg at bedtime, Seroquel XR 300 mg at bedtime, Valium 10 mg at bedtime. The patient also is taking Namzaric as well as Mirapex one tablet t.i.d., and then the patient also is on Stalevo one tab p.o. twice a day. The patient is taking these medications. He seems to be back on his baseline, but complaining that he is taking too much medication. He is not complaining of being tired at this time. PAST PSYCHIATRIC HISTORY: As stated, history of schizophrenia with multiple admissions in the past. He sees a psychiatrist from [place]. DRUG AND ALCOHOL HISTORY: Denies any. ALLERGIES: THE PATIENT HAS NO KNOWN ALLERGIES. PSYCHOSOCIAL HISTORY: The patient lives in a senior care. He is disabled secondary to his mental illness. LIST OF CURRENT MEDICATIONS: Actos, Amaryl, Comtan, Crestor, Glucophage, Januvia, Namenda, Seroquel XR, Sinemet, and Toprol. LABORATORY DATA: On review of his labs, his WBC is 8.3. Sodium is 140, creatinine is 1, BUN is 34. His hemoglobin A1c is 6.3. AST is elevated. UA is negative. Drug screen is positive for benzo as the patient was taking Val[facility] in the [facility]. REVIEW OF SYSTEMS: He is alert and oriented x3, sitting in his room. He states he is feeling better. He said he is taking too much medicines. PHYSICAL EXAMINATION: VITAL SIGNS: Temperature is 97.6, 86 pulse, 130/89 blood pressure, respirations 20, oxygen saturation is 95%. SKIN: No diaphoresis. HEENT: No headache. No dizziness. NECK: Supple. RESPIRATORY: No dyspnea. CARDIOVASCULAR: No chest pain. GASTROINTESTINAL: He is eating well. EXTREMITIES: Has mild hand tremors. Gait is unsteady at times. MUSCULOSKELETAL: Feels weak. NEUROLOGIC: Alert and oriented x3. GENITOURINARY: No urinary problems. MENTAL STATUS EXAMINATION: Elderly male, who is about 5 feet 5 inches and weighs 175 pounds. Alert and oriented x3. Mood is calm. Affect is reactive. Speech is spontaneous. Thought process, coherent. Thought content, no hallucinations. No paranoia. No suicidal or homicidal ideation. Attention and memory seem to be limited. Insight and judgment, limited. Impulse control is fair at this time. IMPRESSION: History of chronic schizophrenia as well as history of Parkinson's disease, probably from chronic exposure to antipsychotics as well as history of dementia. PLAN AND RECOMMENDATIONS: The patient is seen. Meds were reviewed. We will agree to reduce or streamline his medication. I agreed to keep the patient off Trazodone 400 mg, which is way above the recommended dose. We will continue the Seroquel XR 300 mg at bedtime and keep the patient off Valium. Valium can cross react with Seroquel and the Trazodone and can cause lethargy, especially that the patient is also taking some of his Parkinson's meds. Parkinson's meds can also cause lethargy and side effects. For now, we will keep the patient only on Seroquel 300 mg at bedtime and also the Namenda 10 mg twice a day. I agreed to streamline his medication as the patient is taking too much of medication at this time, and this can cause lethargy and change in mental status. The patient states he is sleeping well, and as stated, we will keep him off the high-dose of Trazodone and Valium. We will continue the Namenda as ordered, and the patient once medically stable, may go back to the senior care for long-term care. He had a CAT scan of the head done that showed no acute intracranial abnormality. For now, we will streamline his meds due to the patient's polypharmacy, to reduce sedation as side effect. The patient has agreed to have his medication reduced. The patient can follow up with his psychiatrist. I agreed not to put benzo together with his psych medication. Daniel Pratt MD
[2018-08-23] MEDS: QUEtiapine 150 mg XR Tab PO SCH (21:38)
[2018-08-24] MEDS: Sodium Chloride 0.9% 1,000 ML IV SCH ×3 (00:57→09:48)
[2018-08-24] MEDS: (Novolog) Insulin Aspart, Recombinant 100 u/ml 10 ml vial SC SCH ×2 (07:55→12:40)
[2018-08-24 08:22] VITALS: BP 120/66; PULSE 91; TEMP 97.3
[2018-08-24] MEDS: Metoprolol Succinate 25 mg XL Tab PO SCH (09:40)
[2018-08-24] MEDS: Enoxaparin 40 mg Syringe SC SCH (09:41)
--- NOTE | 2018-08-24 15:55 | PN ---
DATE: 08/24/2018 SUBJECTIVE: The patient is seen. The patient is complaining of back pain, but other than that his mental status seems to be back to baseline. The patient wants to go back to the retirement. He is off trazodone and also off Valium. REVIEW OF SYSTEMS: The patient is alert, oriented x3, but forgetful at times. Seen in his room, he said he is having back pain. PHYSICAL EXAMINATION: VITAL SIGNS: Temperature is 97.3, pulse rate 91, blood pressure 120/66, respirations 20, and oxygen saturation 99%. SKIN: No diaphoresis. HEENT: No headache. No dizziness. NECK: Supple. RESPIRATORY: No dyspnea. CARDIOVASCULAR: No chest pain. GASTROINTESTINAL: Regular appetite. MUSCULOSKELETAL: He is complaining of back pain. EXTREMITIES: The patient has no tremors. NEUROLOGIC: Alert, oriented x3, but forgetful. GENITOURINARY: No urinary problems. MENTAL STATUS EXAMINATION: An elderly male, who looks stated age, oriented x3, but forgetful. Speech is spontaneous. Affect is reactive. Mood is calm. Thought process, forgetful. Thought content, the patient wants to go home. No overt psychosis. No suicidal or homicidal ideation. The patient was asking for pain meds because he was complaining of back pain. Attention and memory seem to be limited at times. Insight and judgment, fair. Impulse control is fair. IMPRESSION: History of delirium, metabolic encephalopathy, improved as well as history of chronic schizophrenia. PLAN AND RECOMMENDATIONS: The patient was seen, meds reviewed. The patient psych montes may go back to the retirement today, stay away from Valium as well as trazodone. He continues Namenda for his memory and just to continue Seroquel up to 300 mg at bedtime. I do not recommend him taking any benzos or trazodone for now as it was making him confused due to polypharmacy. Daniel Pratt MD
--- NOTE | 2018-08-24 18:47 | CP.PCM.PN ---
Subjective - Date & Time of Evaluation Date of Evaluation: 08/24/18 Time of Evaluation: 11:00 - Subjective Subjective: awake, alert, no agitation or distress, NAD. Objective - Vital Signs/Intake and Output Vital Signs (last 24 hours): Temp Pulse Resp BP Pulse Ox 97.3 F L 91 H 20 120/66 99 08/24/18 07:17 08/24/18 07:17 08/24/18 07:17 08/24/18 07:17 08/24/18 11:51 Intake and Output: 08/24/18 08/24/18 06:59 18:59 Intake Total 800 Balance 800 - Labs Labs: 08/22/18 08:35 08/22/18 08:35 PT 11.9 SECONDS (9.7-12.2) 08/22/18 08:35 INR 1.1 08/22/18 08:35 APTT 30 SECONDS (21-34) 08/22/18 08:35 Assessment and Plan - Assessment and Plan (Free Text) Assessment: 63 yesr old male admitted with lethargy, AMS, seen and examined, sitting on the chair, awake, alert, no agitation or distress. Discussed with DR Vega, plan to discharge back to the correction today. Advised to follow up with PMD in 1 week.
== END 2018-08-24 13:52 | disposition home or self-care (01) ==
LOC: C.ER 07:04 → C.9E 11:46 → C.5S 16:32
PROVIDERS: ADMIT Internal Medicine; ATTEND Internal Medicine
DX: R53.83 Other fatigue (principal); R41.82 Altered mental status, unspecified; T42.4X5A Adverse effect of benzodiazepines, initial encounter; E11.9 Type 2 diabetes mellitus without complications; E78.5 Hyperlipidemia, unspecified; G20 Parkinson's disease; F02.80 Dementia in other diseases classified elsewhere, unspecified severity, without behavioral disturbance, psychotic disturbance, mood disturbance, and anxiety; I10 Essential (primary) hypertension; Z86.11 Personal history of tuberculosis; M54.5 Low back pain; F20.5 Residual schizophrenia
CPT/HCPCS: 70450; 71045; 72114; 80053; 80061; 81001; 82803; 82948; 83036; 84484; 85025; 85610; 85730; 86850; 86900; 87086; 96360; 96361; 97110; 97116; 97162; 99285; G0378; G0480; G8978; G8979; J1650; J7030